=== PATIENT | female | born 2000 | race Two or more races ===

== ENCOUNTER 2019-10-17 17:54 | Emergency (ER) | payer BC, OTHER ==
[~2019-10-17] VITALS: Ht 165.1 cm; Wt 108.9 kg
--- NOTE | 2019-10-17 18:37 | NUR ---
Dr. Lua at bedside for MSE
[2019-10-17] MEDS ORDERED: ACETAMINOPHEN ES 500 MG TABLET PO ONE (18:45)
[2019-10-17] MEDS ORDERED: ACETAMINOPHEN ES 500 MG TABLET ONE (18:45)
--- NOTE | 2019-10-17 19:03 | NUR ---
Patient discharged to home in stable condition. Written and verbal after care instructions given. Patient verbalizes understanding of instructions. Stressed follow up or return to ER for worsening s/s. Patient ambulating with steady gait. NAD noted
[2019-10-17 19:04] VITALS: BP 109/63
== END 2019-10-17 19:16 | disposition home or self-care (01) ==
LOC: ER 17:54
DX: U07.1 COVID-19 (principal); J12.89 Other viral pneumonia
CPT/HCPCS: 71045; 99284; U0003; A4663; A9150